=== PATIENT | female | born 1990 | race Two or more races ===

== ENCOUNTER 2025-02-14 08:16 | Emergency (ER) | payer OTHER ==
[~2025-02-14] VITALS: Ht 149.9 cm; Wt 74.9 kg
[2025-02-14 08:17] VITALS: BP 143/86; PULSE 146; RESP 20; O2SAT 97
[2025-02-14 08:25] VITALS: TEMP 100.4
[2025-02-14] MEDS: ACETAMINOPHEN 325 MG TAB PO ONE (08:25)
== END 2025-02-14 13:32 | disposition left against medical advice (07) ==
LOC: ER 08:16
DX: R07.0 Pain in throat (principal); Z79.899 Other long term (current) drug therapy